=== PATIENT | male | born 1965 | race African-American/Black ===

== ENCOUNTER 2019-09-28 09:10 | Emergency (ER) | payer MEDICAID ==
[~2019-09-28] VITALS: Ht 198.1 cm; Wt 99.8 kg
[2019-09-28 09:14] VITALS: BP 150/81
[2019-09-28 09:58] VITALS: BP 150/81
== END 2019-09-28 09:59 ==
LOC: MED 09:10
DX: R03.0 Elevated blood-pressure reading, without diagnosis of hypertension (principal); M54.2 Cervicalgia; Z02.89 Encounter for other administrative examinations
CPT/HCPCS: 99283

== ENCOUNTER 2021-02-21 05:33 | Inpatient (IN) | payer MEDICAID, SELFPAY ==
[2021-02-21] VITALS (19 sets, daily range): BP systolic 134–181; BP diastolic 79–112
[~2021-02-21] VITALS: Ht 195.6 cm; Wt 91.2 kg
--- NOTE | 2021-02-21 05:42 | NUR ---
biba to bed 06
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
[2021-02-21] MEDS ORDERED: AMMONIA AROMATIC 1 INHL INH ONE (06:08)
--- NOTE | 2021-02-21 07:16 | NUR ---
Pt report given to ZELDA Juarez. Transfer of care at this time.
--- NOTE | 2021-02-21 07:30 | NUR ---
PT DESATURATING TO 85%. PLACED ON NON REBREATHER 15L.
[2021-02-21] MEDS ORDERED: NALOXONE 0.4 MG/ML VIAL ONE ×3 (08:19→09:50)
--- NOTE | 2021-02-21 08:20 | NUR ---
PUPILS DILATED. WITHDRAWS TO PAIN. ERMD AT BEDSIDE. 4MG OF NARCAN GIVEN.
[2021-02-21] MEDS ORDERED: NALOXONE 0.4 MG/ML VIAL IVP ONE ×2 (08:30→09:30)
--- NOTE | 2021-02-21 08:56 | NUR ---
PT ON NASAL CANNULA 2LPM. O2 SATURATION 100%. WILL CONTINUE TO MONITOR.
--- NOTE | 2021-02-21 09:30 | NUR ---
PT SATURATING 55%. PT ON NON REBREATHER 15L. ERMD CALLED TO BEDSIDE.
[2021-02-21] MEDS ORDERED: INTUBATION KIT MC ONE (09:53)
--- NOTE | 2021-02-21 09:55 | NUR ---
Uzair PALENCIA RCP CALLED TO BEDSIDE PATIENT PRESENTING WITH DECLINING SATURATION PER JENY/FLIGHT TEACHER 78%-88% OM SUPPLEMENTAL OXYGEN AT 2 LPM VIA NC
[2021-02-21] MEDS ORDERED: ROCURONIUM 50 MG/5 ML VIAL IV ONE (10:00)
[2021-02-21] MEDS ORDERED: ETOMIDATE 20 MG/10 ML VIAL IVP ONE (10:00)
[2021-02-21 10:04] LABS: BASOPHILS % (AUTO) 0.4 % (0.0-2.0); EOSINOPHILS # (AUTO) 0.1 K/uL (0-0.4); EOSINOPHILS % (AUTO) 1.3 % (0.0-4.0); HEMATOCRIT 41.5 % (36-52); HEMOGLOBIN 13.9 g/dL (12.0-18.0); LYMPHOCYTES # (AUTO) 1.7 K/uL (2.0-11.5); LYMPHOCYTES % (AUTO) 28.2 % (20.5-51.1); MEAN CORPUSCULAR HEMOGLOBIN 31 pg (27-31); MEAN CORPUSCULAR HGB CONC 34 g/dL (33-37); MEAN CORPUSCULAR VOLUME 91.2 fL (80-94); MONOCYTES # (AUTO) 0.6 K/uL (0.8-1.0); MONOCYTES % (AUTO) 10.7 % (1.7-9.3); NEUTROPHILS # (AUTO) 3.6 K/uL (1.8-7.7); NEUTROPHILS % (AUTO) 59.4 % (42.2-75.2); PLATELET COUNT (AUTO) 238 K/uL (140-450); RED BLOOD CELL COUNT(AUTO) 4.54 MIL/uL (4.20-6.10); RED CELL DISTRIBUTION WIDTH 13.9 % (11.6-13.7)
--- NOTE | 2021-02-21 10:05 | NUR ---
PATIEN SUCCESSFULLY INTUBATED BY DR. CANO/MAYTE ENDOTRACHEAL TUBE #7.5 SECURED AT 23cm TEETH/GUM LINE ETCO2 DETECTOR YELLOW GOOD AERATION THROUGHOUT BILATERAL LUNG MARTIN CONFIRNED BT ERMD
[2021-02-21] MEDS ORDERED: PROPOFOL 1000 MG/100 ML PREMIX 100 ML IV ONE (10:07)
[2021-02-21] MEDS ORDERED: PROPOFOL 200 MG/20 ML VIAL IV ONE ×2 (10:07→10:15)
--- NOTE | 2021-02-21 10:08 | NUR ---
MOIZ CANO VENTILATO SETTINGS: AC R18 [id number] PEEP 5cmH2O 100% OXYGEN SATURATION GREATER THAN 92%; ABG AFTER 1 HOUR ON VENTILAOTR PER MAYTE OKAY FOR PLANNING DIRECTOR TO ENTER VENTILAOTR AND ABG ORDERS
[2021-02-21] MEDS ORDERED: fentaNYL citrate 1 MG in NACL 0.9% 80 ML IV PRN (10:15)
[2021-02-21 10:32] LABS: ANION GAP 10.2 (8-16); CARBON DIOXIDE 28.3 mmol/L (21-32); CHLORIDE 106 mmol/L (98-107); CREATININE 1.2 mg/dL (0.6-1.3); GFR ARICAN-AMERICAN 81 mL/min (>90); GLUCOSE 95 mg/dL (74-106); POTASSIUM 3.5 mmol/L (3.5-5.1); SODIUM SERUM 141 mmol/L (136-145); UREA NITROGEN, BLOOD 17 mg/dL (7-18)
[2021-02-21] MEDS ORDERED: SODIUM PHOS / POTASSIUM PHOS 1 PKT PDR PO PRN (10:35)
[2021-02-21] MEDS ORDERED: DOCUSATE SODIUM 100 MG GELCAP PO PRN (10:35)
[2021-02-21] MEDS ORDERED: POTASSIUM CHLORIDE 40 MEQ, LIDOCAINE MPF 1% 25 MG in NACL 0.9% 250 ML IV PRN (10:35)
[2021-02-21] MEDS ORDERED: HYDROcodone/APAP 5/325 MG 1 TAB TAB PO PRN (10:35)
[2021-02-21] MEDS ORDERED: ONDANSETRON 4 MG/2 ML VIAL IM/IVP PRN (10:35)
[2021-02-21] MEDS ORDERED: ACETAMINOPHEN 325 MG TAB PO PRN (10:35)
[2021-02-21] MEDS ORDERED: MAG SULF 2000 MG/WATER PREMIX 50 ML IV PRN (10:35)
[2021-02-21 10:38] LABS: ALBUMIN 3.5 g/dL (3.4-5.0); ASPARTATE AMINOTRANSFERASE 61 U/L (15-37); TOTAL BILIRUBIN 0.5 mg/dL (0.0-1.0)
[2021-02-21 11:10] LABS: APPEARANCE,URINE CLEAR (CLEAR); BILIRUBIN,URINE NEGATIVE (NEGATIVE); BLOOD, URINE 1+ (NEGATIVE); COLOR,URINE YELLOW (YELLOW); LEUKOCYTE ESTERASE ,URINE TRACE (NEGATIVE); NITRITE, URINE NEGATIVE (NEGATIVE); PH,URINE 7.5 (5.0-9.0); UGLUCOSE NEGATIVE (NEGATIVE)
[2021-02-21 11:16] LABS: RBC,URINE 0-5 /HPF (0-5); WBC,URINE 0-5 /HPF (0-5)
[2021-02-21 11:23] LABS: BARBITURATE, URINE NEGATIVE ng/ml (NEG <=200); BENZODIAZEPINE, URINE NEGATIVE ng/mL (NEG <=200); CANNABINOID, URINE NEGATIVE ng/mL (NEG <=50); COCAINE, URINE NEGATIVE ng/mL (NEG <=300); OPIATE, URINE NEGATIVE ng/mL (NEG <=2000); PHENCYCLIDINE SCREEN,URINE POSITIVE ng/mL (NEG <=25)
[2021-02-21] MEDS: NACL 0.9% 1,000 ML IV SCH (11:25)
[2021-02-21] MEDS: PANTOPRAZOLE 40 MG INJ VIAL IVP SCH (11:25)
--- NOTE | 2021-02-21 11:25 | NUR ---
TRAHEAL SUCTION FR MODERATE HAZY WITH BLOOD TINGE SECRETIONS AIRWAY PATENT
--- NOTE | 2021-02-21 11:52 | NUR ---
TRANSFERRED TO ICU-6 REMOVED FROM VENTILATOR PLACED ON SUPPLEMENTAL OXYGEN VIA E-TANK AT 15 LPM TO AMBU BAG/HME/SUCTION CATHETER/ENDOTRACHEAL TUBE AMBU BAG DEPRESSION EVERY SIX SECONDS BY Uzair PALENCIA, PHOTOGRAPHIC PRINTER SATURATION 100% HR 78 TOLERATED TRANSFER WELL WITHOUT ADVERSE REACTIONS NOTED
--- NOTE | 2021-02-21 11:56 | NUR ---
Patient will be admitted to care of DR CHAVARRIA. Admited to ICU. Will go to room ICU-6. Belongings list completed. Report to BRANDON NDIAYE.
--- NOTE | 2021-02-21 12:15 | NUR ---
PT ARRIVED FROM ER IN [facility], REPORT RECEIVED FROM PETRONA NDIAYE, PT SEDATED ETT TO VENT, 7.5FR, 24CM AT [facility], ACVC FIO2 70%, TV 500, RR 18, PEEP 5, O2SAT 100%, BILAT EQUAL CHEST RISE AND FALL, BS CLEAR, PT PLACED ON YARN WEIGHER, NSR AT 75, BP 154/96, SKIN WARM DRY COLOR WNL, CAP REFILL <3SEC, NO EDEMA NOTED, ABD SOFT FLAT NON DISTENDED, LACERATION TO CHIN, ABRASION TO LEFT HAND, HEALING SORES TO LEFT INNER THIGH NOTED, WILL TAKE PHOTO, PT SEDATED TO RASS-1, REACHING TO ETT WITH HANDS, RESTRAINTS ON BILAT WRISTS, PROPOFOL INCREASED FROM 40 TO 50MCG/KG/MIN, DRY WT 95KG, IV TO LEFT AC 20G, SITE WNL, PT ORIENTED TO ROOM AND FLOOR, CALL LANDERS WITHIN REACH, SIDE RAILS UP X2, BED LOCKED IN LOW POSITION, PLAN OF CARE AND ORDERS REVIEWED.
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
[2021-02-21] MEDS: fentaNYL citrate 1 MG in NACL 0.9% 80 ML IV PRN ×2 (13:05→23:49)
--- NOTE | 2021-02-21 13:06 | NUR ---
FENTANYL DRIP STARTED PER ORDER
[2021-02-21] MEDS: PROPOFOL 1000 MG/100 ML PREMIX 100 ML IV PRN ×3 (13:08→20:15)
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
--- NOTE | 2021-02-21 13:35 | NUR ---
RT AT BEDSIDE FOR EKG
--- NOTE | 2021-02-21 14:22 | NUR ---
DR MOCTEZUMA PAGED AND CALLED BACK, REPORTED INCREASED BP 166/103, ORDER RECEIVED FOR ONE TIME DOSE OF HYDRALAZINE
[2021-02-21] MEDS ORDERED: hydrALAZINE 20 MG/ML VIAL IVP SCH (15:00)
--- NOTE | 2021-02-21 15:55 | NUR ---
DR MOCTEZUMA AT BEDSIDE
--- NOTE | 2021-02-21 16:50 | NUR ---
FIO2 TITRATED TO 35%. SPO2 100%. NURSE AWARE. WILL CONTINUE TO MONITOR.
[2021-02-21] MEDS ORDERED: hydrALAZINE 20 MG/ML VIAL IVP PRN ×2 (17:05→23:10)
[2021-02-21] MEDS ORDERED: LORazepam 2 MG/ML VIAL IM/IVP PRN (17:45)
--- NOTE | 2021-02-21 19:03 | NUR ---
DR METZ AT BEDSIDE
--- NOTE | 2021-02-21 19:30 | NUR ---
ASSUMED CARE OF PT.INITIAL ASSESSMENT COMPLETED.SR ON MONITOR.SEDATED.ORALLY INTUBATED TO VENT FIO2 35% TV500 RATE 18 PEEP5.WITH PERIPHERAL IV TO KRYSTIAN INTACT INFUSING FENTANYL 1MCG/KG/HR; LT AC G20 INTACT INFUSING PROPOFOL 40MCG/KG/MIN DRY WT 95KG. AND NS AT 40ML/HR.W/NGT TO LT NARES INTACT.PLACEMENT VERIFIED.NO RESIDUAL.ON JEVITY 1.2 AT 10ML/HR WATER FLUSH ORDERED.W/GUIDRY CATHETER TO BSD DRAINING SMALL AMT OF CLEAR YELLOW URINE.W/ABRASION TO LT HAND,LACERATION TO CHIN W/DERMA FERNANDO AND DRY WOUND TO LT INNER THIGH.FLACC 0.
--- NOTE | 2021-02-21 20:00 | NUR ---
URINE SPEC FOR U/A AND CULTURE SENT TO LAB
--- NOTE | 2021-02-21 21:58 | NUR ---
FIO2 TITRATED TO 30% AND TOLERATING WELL SPO2 100% 5 MIN POST TITRATION
[2021-02-21] MEDS ORDERED: METOPROLOL 5 MG/5 ML VIAL IV PRN ×2 (23:05→23:30)
--- NOTE | 2021-02-21 23:05 | NUR ---
PHONE CALL TO DR NÚÑEZ, OPTICAL LABORATORY MANAGER MD, MADE AWARE PTS BP STILL 174/95 AFTER APRESOLINE IVP GIVEN ORDERED.NEW ORDERS RECEIVED.CARRIED OUT
--- NOTE | 2021-02-21 23:41 | NUR ---
BP 195/95 HR 89; METOPROLOL ADMIN ORDERED.WILL CONTINUE TO CLOSELY MONITOR PT
[2021-02-22] VITALS (34 sets, daily range): BP systolic 130–173; BP diastolic 68–97
--- NOTE | 2021-02-22 00:15 | NUR ---
FIO2 TITRATED TO 24% AND TOLERATING WELL WILL CONTINUE TO MONITOR
[2021-02-22] MEDS: PROPOFOL 1000 MG/100 ML PREMIX 100 ML IV PRN ×6 (00:41→23:00)
--- NOTE | 2021-02-22 00:42 | NUR ---
ORAL CARE USING VAP KIT RENDERED.PT ON HEPARIN FOR DVT PROPHYLAXIS AND PROTONIX FOR GI PROPHYLAXIS.REPOSITIONED
--- NOTE | 2021-02-22 02:46 | NUR ---
PTS CONDITION REMAINS UNCHANGED.STILL ON PROPOFOL AND FENTANYL DRIPS.FLACC 0
--- NOTE | 2021-02-22 04:00 | NUR ---
ORAL CARE USING VAP KIT RENDERED.SECRETIONS SUCTIONED.REPOSITIONED.FLACC 0
--- NOTE | 2021-02-22 05:14 | NUR ---
MORNING CARE DONE.REPOSITIONED.NGT FEEDING INCREASED ORDERED
[2021-02-22 06:10] LABS: BASOPHILS % (AUTO) 0.3 % (0.0-2.0); EOSINOPHILS # (AUTO) 0.1 K/uL (0-0.4); EOSINOPHILS % (AUTO) 0.8 % (0.0-4.0); HEMATOCRIT 46.3 % (36-52); LYMPHOCYTES # (AUTO) 1.5 K/uL (2.0-11.5); LYMPHOCYTES % (AUTO) 21.8 % (20.5-51.1); MEAN CORPUSCULAR HEMOGLOBIN 31 pg (27-31); MEAN CORPUSCULAR HGB CONC 33 g/dL (33-37); MEAN CORPUSCULAR VOLUME 92.5 fL (80-94); MONOCYTES # (AUTO) 0.8 K/uL (0.8-1.0); MONOCYTES % (AUTO) 12.7 % (1.7-9.3); NEUTROPHILS # (AUTO) 4.3 K/uL (1.8-7.7); NEUTROPHILS % (AUTO) 64.4 % (42.2-75.2); PLATELET COUNT (AUTO) 260 K/uL (140-450); RED BLOOD CELL COUNT(AUTO) 5.01 MIL/uL (4.20-6.10); WHITE BLOOD COUNT (AUTO) 6.7 K/uL (4.8-10.8)
[2021-02-22 06:24] LABS: HEMOGLOBIN 15.5 g/dL (12.0-18.0)
[2021-02-22 06:26] LABS: ANION GAP 8.9 (8-16); CARBON DIOXIDE 29.1 mmol/L (21-32)
--- NOTE | 2021-02-22 07:30 | NUR ---
BEDSIDE REPORT RECEIVED FROM PRAVIN RN, PT SEDATED ETT TO VENT, 7.5FR, 24CM AT [facility], ACVC FIO2 24%, TV 500, RR 18, PEEP 5, O2SAT 100%, BILAT EQUAL CHEST RISE AND FALL, BS CLEAR, PT PLACED ON HAND TUFTER, NSR AT 75, BP 137/76, SKIN WARM DRY COLOR WNL, CAP REFILL <3SEC, NO EDEMA NOTED, ABD SOFT FLAT NON DISTENDED, NGT TO LEFT NARE, FEEDING JEVITY AT 30ML/HR, LACERATION TO CHIN, ABRASION TO LEFT HAND, HEALING SORES TO LEFT INNER THIGH NOTED, PT SEDATED TO RASS-3, PROPOFOL 40 MCG/KG/MIN, DRY WT 95KG, FENTANYL 1MCG/KG/HR INFUSING TO PIV LEFT AC 20G AND LEFT UPPER ARM 20G, SITES WNL, SAFETY MEASURES IN PLACE, CALL LANDERS WITHIN REACH, SIDE RAILS UP X2, BED LOCKED IN LOW POSITION, PLAN OF CARE AND ORDERS REVIEWED.
--- NOTE | 2021-02-22 07:31 | NUR ---
RECEIVED INTUBATED PT WITH A 7.5 ETT SECURED @24 TEETH/GUMS, ON VENT. SETTINGS AC 18, VT 500, PEEP 5 AND FIO2 24%. ETT MOVED TO PREVENT LIP BREAKDOWN. PT SUCTIONED OBTAINED SMALL AMOUNT OF THICK WHITE SECRETIONS, AIRWAY IS PATENT AND SECURE WITH ANCHOR FAST DEVICE. PT NOT IN ANY DISTRESS AT THIS TIME. VENT IS PLUGGED INTO A RED OUTLET WITH ALARMS ON AND FUNCTIONING. WILL CONTINUE TO MONITOR.
--- NOTE | 2021-02-22 08:15 | NUR ---
DR DALLAS AT BEDSIDE
--- NOTE | 2021-02-22 08:22 | NUR ---
PATIENT HAS BEEN SCREENED AND CATEGORIZED HIGH NUTRITION RISK. PATIENT WILL BE SEEN WITHIN 1-2 DAYS OF ADMISSION. 02/22/21 02/23/[address]
[2021-02-22] MEDS: PANTOPRAZOLE 40 MG INJ VIAL IVP SCH (09:00)
--- NOTE | 2021-02-22 09:02 | NUR ---
AM MEDS GIVEN PER ORDER, AM CARE DONE, ORAL CARE DONE, GUIDRY CARE DONE.
[2021-02-22] MEDS: NACL 0.9% 1,000 ML IV SCH (10:54)
[2021-02-22] MEDS: DOCUSATE 100 MG/10 ML UDC GT PRN (11:55)
[2021-02-22] MEDS: fentaNYL citrate - 50mL vial 2.5 MG in NACL 0.9% 200 ML IV PRN (12:01)
--- NOTE | 2021-02-22 12:05 | NUR ---
DR MOCTEZUMA AT BEDSIDE
--- NOTE | 2021-02-22 14:21 | NUR ---
PRN HYDRALAZINE GIVEN FOR INCREASED BP 172/100
--- NOTE | 2021-02-22 16:40 | NUR ---
TYLENOL GIVEN FOR 101.6, COOL SPONGE BATH GIVEN
--- NOTE | 2021-02-22 19:20 | NUR ---
RECEIVED PATIENT ON BED WITH HOB TO 30 DEGREE; SEDATED RASS-3 WITH PROPOFOL DRIPAT 35 MCG/KG/MIN AND WITH CONTINOUS FENTANYL INFUSION AT 1 MG/KG/HOUR VIA G20 IV CANNULA ON LEFT ARM.; PATENT AND INTACT. ORALLY INTUBATED AND VENTILATED AT 24% FIO2, SO2 99%. CARDIACSCOPE SHOWS ON SINUS RHYTHM HR 98/MIN NO ARRHYTHMMIAS SEEN. ABDOMEN SOFT, BOWEL SOUNDS ACTIVE; ON CONTINOUS TUBE FEEDING JEVITY 1.2AT 30 ML/HR VIA NGT TO LEFT NARE. WITH GUIDRY CATH IN PLACE TO GRAVITY DRAINAGE BAG DRAINING TO CLEAR YELLOW URINE OUTPUT; PATENT AND INTACT.
--- NOTE | 2021-02-22 20:30 | NUR ---
TURNED AND REPOSITIONED PATIENT; ORAL CARE DONE WITH VAP KIT.
[2021-02-23] VITALS (31 sets, daily range): BP systolic 116–166; BP diastolic 59–98
[2021-02-23] MEDS: PROPOFOL 1000 MG/100 ML PREMIX 100 ML IV PRN ×3 (03:15→19:51)
--- NOTE | 2021-02-23 03:30 | NUR ---
MORNING BED BATH DONE; KEPT CLEAN DRY AND COMFORTABLE.
[2021-02-23 06:17] LABS: ANION GAP 5.7 (8-16); CARBON DIOXIDE 30.1 mmol/L (21-32); POTASSIUM 3.8 mmol/L (3.5-5.1)
[2021-02-23 06:30] LABS: BASOPHILS % (AUTO) 0.1 % (0.0-2.0); EOSINOPHILS % (AUTO) 0.3 % (0.0-4.0); HEMATOCRIT 42.5 % (36-52); HEMOGLOBIN 14.2 g/dL (12.0-18.0); LYMPHOCYTES # (AUTO) 1.2 K/uL (2.0-11.5); LYMPHOCYTES % (AUTO) 15.1 % (20.5-51.1); MEAN CORPUSCULAR HEMOGLOBIN 31 pg (27-31); MEAN CORPUSCULAR HGB CONC 34 g/dL (33-37); MEAN CORPUSCULAR VOLUME 92.4 fL (80-94); MONOCYTES % (AUTO) 12.4 % (1.7-9.3); NEUTROPHILS # (AUTO) 5.7 K/uL (1.8-7.7); NEUTROPHILS % (AUTO) 72.1 % (42.2-75.2); PLATELET COUNT (AUTO) 254 K/uL (140-450); RED BLOOD CELL COUNT(AUTO) 4.59 MIL/uL (4.20-6.10); RED CELL DISTRIBUTION WIDTH 13.9 % (11.6-13.7); WHITE BLOOD COUNT (AUTO) 7.9 K/uL (4.8-10.8)
--- NOTE | 2021-02-23 07:30 | NUR ---
BEDSIDE REPORT RECEIVED FROM ANTONIO RN, PT SEDATED ETT TO VENT, 7.5FR, 24CM AT [facility], ACVC FIO2 24%, TV 500, RR 18, PEEP 5, O2SAT 100%, BILAT EQUAL CHEST RISE AND FALL, BS CLEAR, PT PLACED ON SUMO WRESTLER, NSR AT 93, BP 177/81, SKIN WARM DRY COLOR WNL, CAP REFILL <3SEC, NO EDEMA NOTED, ABD SOFT FLAT NON DISTENDED, NGT TO LEFT NARE, FEEDING JEVITY AT 50ML/HR, GUIDRY CATH IN PLACE, DRIAINING CLEAR LIGHT YELLOW URINE, LACERATION TO CHIN, ABRASION TO LEFT HAND, HEALING SORES TO LEFT INNER THIGH NOTED, PT SEDATED TO RASS-3, PROPOFOL 30 MCG/KG/MIN, DRY WT 95KG, FENTANYL 1MCG/KG/HR INFUSING TO PIV LEFT AC 20G AND LEFT UPPER ARM 20G, SITES WNL, SAFETY MEASURES IN PLACE, CALL LANDERS WITHIN REACH, SIDE RAILS UP X2, BED LOCKED IN LOW POSITION, PLAN OF CARE AND ORDERS REVIEWED.
[2021-02-23] MEDS: PANTOPRAZOLE 40 MG INJ VIAL IVP SCH (09:17)
[2021-02-23] MEDS: NACL 0.9% 1,000 ML IV SCH (10:35)
--- NOTE | 2021-02-23 14:20 | NUR ---
PT REACHING FOR ETT, OPENS EYES TO VOICE, DOES NOT FOLLOW COMMANDS, FENTANYL INCREASED, RESTRAINTS PLACED BACK ON
--- NOTE | 2021-02-23 14:35 | NUR ---
RECEIVED TORB BY DR. DUEÑAS FOR NEW TUBE FEEDING RECOMMENDATIONS FOR VITAL HIGH PROTEIN @ 80 ML/HR WITH FREE WATER FLUSH OF 80 ML Q6H.
--- NOTE | 2021-02-23 15:41 | NUR ---
02/23/21 RD INITIAL ASSESSMENT COMPLETED PLEASE REFER TO NUTRITION ASSESSMENT UNDER CARE ACTIVITY FOR ESTIMATED NUTRITIONAL NEEDS. 1. RECOMMENDED VITAL HIGH PROTEIN @ 80 ML/HR; START AT 40 ML/HR AND ADVANCE TO 80 ML/HR AFTER 4HR -THIS WILL PROVIDE 1920 KCAL AND 168 GM OF PROTEIN, MEETING 81% OF KCAL NEEDS AND 100% OF PROTEIN NEEDS 2. RECOMMEND FREE WATER FLUSH OF 80 ML Q6H 3. RECOMMEND SWALLOW EVALUATION IF/WHEN PATIENT IS EXTUBATED 4. RD TO FOLLOW-UP 2-3 DAYS, HIGH RISK JOSEFA ALLEN RD
[2021-02-23] MEDS: fentaNYL citrate - 50mL vial 2.5 MG in NACL 0.9% 200 ML IV PRN (15:45)
--- NOTE | 2021-02-23 17:38 | NUR ---
PT REMAINS ON DOCUMENTED VENT SETTINGS. PT NOT IN ANY DISTRESS AT THIS TIME. VENT ALARMS ON AND FUNCTIONING. ETT SECURE WITH A PATENT AIRWAY.
[2021-02-23 18:58] LABS: CHOL/HDL RATIO 2.9 (1-4.5); THYROID STIMULATING HORMONE 0.68 uIU/mL (0.34-3.74)
[2021-02-23 19:12] LABS: PROTHROMBIN TIME 10.6 secs (10.8-13.4)
--- NOTE | 2021-02-23 19:15 | NUR ---
RECEIVED PATIENT ON BED, WITH HOB TO 3O DEGREE; SEDATED CONTINOUSLY WITH PROPOFOL AND FENTANYL DRIP VIA PERIPHERAL LINES TO LEFT ARM. ORALLY; PUPILS 2MM BOTH BRISKLY REACTIVE TO LIGHT.ORALLY INTUBATED AND VENTILATED AT 24% FIO2 SO2 99%. CARDIACSCOPE SHOWS ON SINUS RHYTHM HR 96/MIN, NO ARRHYTHMIAS SEEN. ABDOMEN IS SOFT, ACTIVE BOWEL SOUNDS; ON CONTINOUS TUBE FEEDING JEVITY 1.2 VIA NGT; TOLERATED, WITH MINIMAL RESIDUALS. WITH GUIDRY CATH IN SITU TO GRAVITY DRAINAGE BAG, DRAINING TO CLEAR YELLOW URINE OUTPUT; PATENT AND INTACT.
--- NOTE | 2021-02-23 21:00 | NUR ---
TURNED AND REPOSITIONED PATIENT; ORAL CARE DONE WITH VAP KIT.
[2021-02-24] VITALS (21 sets, daily range): BP systolic 112–164; BP diastolic 60–99
[2021-02-24] MEDS: PROPOFOL 1000 MG/100 ML PREMIX 100 ML IV PRN ×4 (00:36→10:24)
--- NOTE | 2021-02-24 03:30 | NUR ---
MORNING BED BATH DONE; KEPT CLEAN, DRY AND COMFORTABLE.
[2021-02-24] MEDS: PANTOPRAZOLE 40 MG INJ VIAL IVP SCH ×2 (05:00→08:58)
[2021-02-24 06:07] LABS: BASOPHILS % (AUTO) 0.4 % (0.0-2.0); EOSINOPHILS # (AUTO) 0.1 K/uL (0-0.4); EOSINOPHILS % (AUTO) 1.2 % (0.0-4.0); HEMATOCRIT 39.8 % (36-52); HEMOGLOBIN 13.5 g/dL (12.0-18.0); LYMPHOCYTES # (AUTO) 1.1 K/uL (2.0-11.5); LYMPHOCYTES % (AUTO) 15.8 % (20.5-51.1); MEAN CORPUSCULAR HEMOGLOBIN 31 pg (27-31); MEAN CORPUSCULAR HGB CONC 34 g/dL (33-37); MEAN CORPUSCULAR VOLUME 90.8 fL (80-94); MONOCYTES # (AUTO) 0.8 K/uL (0.8-1.0); MONOCYTES % (AUTO) 11.2 % (1.7-9.3); NEUTROPHILS # (AUTO) 5.2 K/uL (1.8-7.7); NEUTROPHILS % (AUTO) 71.4 % (42.2-75.2); PLATELET COUNT (AUTO) 221 K/uL (140-450); RED BLOOD CELL COUNT(AUTO) 4.38 MIL/uL (4.20-6.10); WHITE BLOOD COUNT (AUTO) 7.2 K/uL (4.8-10.8)
[2021-02-24 06:27] LABS: ANION GAP 4.9 (8-16); CARBON DIOXIDE 31.9 mmol/L (21-32); POTASSIUM 3.8 mmol/L (3.5-5.1)
--- NOTE | 2021-02-24 07:20 | NUR ---
BEDSIDE REPORT RECEIVED FROM ANTONIO RN, PT SEDATED ETT TO VENT, 7.5FR, 24CM AT [facility], ACVC FIO2 24%, TV 500, RR 18, PEEP 5, O2SAT 100%, BILAT EQUAL CHEST RISE AND FALL, BS CLEAR, PT PLACED ON OPERATIONS SUPPORT SPECIALIST, NSR AT 92, BP 133/72, SKIN WARM DRY COLOR WNL, CAP REFILL <3SEC, NO EDEMA NOTED, ABD SOFT FLAT NON DISTENDED, NGT TO LEFT NARE, FEEDING JEVITY AT 50ML/HR, LACERATION TO CHIN, ABRASION TO LEFT HAND, HEALING SORES TO LEFT INNER THIGH NOTED, PT SEDATED TO RASS-3, PROPOFOL 35 MCG/KG/MIN, DRY WT 95KG, FENTANYL 1.5MCG/KG/HR INFUSING TO PIV LEFT AC 20G AND LEFT UPPER ARM 20G, SITES WNL, GUIDRY DRAINING YELLOW URINE, SAFETY MEASURES IN PLACE, CALL LANDERS WITHIN REACH, SIDE RAILS UP X2, BED LOCKED IN LOW POSITION, PLAN OF CARE, LABS AND ORDERS REVIEWED.
[2021-02-24] MEDS: fentaNYL citrate - 50mL vial 2.5 MG in NACL 0.9% 200 ML IV PRN (10:26)
[2021-02-24] MEDS: NACL 0.9% 1,000 ML IV SCH (10:35)
--- NOTE | 2021-02-24 11:10 | NUR ---
DR NÚÑEZ AT BEDSIDE Addendum: 02/24/21 at 1118 by Niecy Rodriguez RN DR NÚÑEZ SPOKE WITH AND MOTHER AT BEDSIDE DISCUSSED PLAN OF CARE Addendum: 02/24/21 at 1119 by Niecy Rodriguez RN DISREGARD ABOVE NOTE
--- NOTE | 2021-02-24 11:19 | NUR ---
DR NÚÑEZ AT BEDSIDE, TO START SBT TRIAL, RT AT BEDSIDE, PLACED ON C-PAP. SEDATION STOPPED
--- NOTE | 2021-02-24 11:21 | NUR ---
PT SELF EXTUBATED AND PLACED ON 3L NC. PT NOT IN ANY DISTRESS AND NOT SOB. NURSE BEDSIDE AND AWARE OF PT STATUS. WILL NOTIFY LAP LAYER.
--- NOTE | 2021-02-24 11:25 | NUR ---
SPOKE TO REGARDING PT SELF EXTUBATING . EXPLAINED PT RESPIRATORY STATUS AND PHYSICIAN STATES TO LEAVE PT EXTUBATED AND MONITOR RESPIRATORY STATUS.
--- NOTE | 2021-02-24 11:25 | NUR ---
DR. NÚÑEZ NOTIFIED THAT P. EXTUBATED HIMSELF AND RT WITH THE PATIENT AT THE TIME.
--- NOTE | 2021-02-24 12:03 | NUR ---
PT NOW RESTING QUIETLY IN NO ACUTE DISTRESS WITH NC AT 3L O2, PT FOLLOWS COMMANDS, VOICE HOARSE, MOVES ALL EXT GOOD STREANGTH, PT ORIENTED TO ROOM AND FLOOR, DATE AND PLACE, DENIES PAIN OR DISCOMFORT
--- NOTE | 2021-02-24 12:35 | NUR ---
PER PT'S REQUEST, CALLED HIS MOTHER CORINA AT [phone], NOTIFIED HER THAT PATIENT IS IN ICU AT [facility].
--- NOTE | 2021-02-24 14:03 | NUR ---
PT SITTING UP IN BED QUIETLY, NO C/O PAIN OR DISCOMFORT, RESP EVEN UNLABORED, VITALS STABLE.
--- NOTE | 2021-02-24 16:36 | NUR ---
PT REPEATEDLY COMPLAINS THAT HE IS HUNGRY, BEDSIDE SWALLOW SCREENING DONE, PT ABLE TO TAKE PO WITHOUT PROBLEM, PT ALSO REQUESTS TO BE SENT HOME, DR DUEÑAS PAGEEdwin AND CALLED BACK, MADE AWARE OF PT'S REQUESTS, PT DOWNGRADED TO TELE, TELEPHONE ORDER FOR REGULAR DIET RECEIVED.
--- NOTE | 2021-02-24 17:02 | NUR ---
PT ATE HALF OF SANDWICH WITHOUT PROBLEM, PT CALM RESTING IN NO ACUTE DISTRESS, PT C/O GUIDRY CATH, WANTS TO PULL OUT, PT EDUCATED NOT TO PULL OUT ON HIS OWN TO PREVENT INJURY.
--- NOTE | 2021-02-24 18:00 | NUR ---
REPORT GIVEN TO JESSICA NDIAYE, PT TRANSFERS SELF WITH MINIMAL ASSIST TO WHEELCHAIR, TAKEN TO 110B IN WHEELCHAIR
--- NOTE | 2021-02-24 18:02 | NUR ---
PT ARRIVED ON UNIT FROM ICU . PT AMBULATED TO BED. TOLERATED WELL. NO S/SX OF DISTRESS AT THIS TIME. PT ASSISTED WITH CALLING FAMILY
--- NOTE | 2021-02-24 19:08 | NUR ---
PT ENDORSED TO BENCH LATHE OPERATOR RN FOR CONTINUITY OF CARE. PT EATING DINNER AMBULATED TO RESTROOM W ASSISTANCE TOLERATED WELL
--- NOTE | 2021-02-24 20:20 | NUR ---
CALL FROM SISTER, LEE WISEMAN, . SHE REQUEST TO BE CONTACTED IN CASE OF HER MOTHER NOT ANSWERING WITH ANY CRITICAL UPDATE. TARAN WYATT RN
--- NOTE | 2021-02-24 20:31 | NUR ---
PATIENT REFUSAL OF HEPARIN. EDUCATION ON BLOOD CLOT RISKS AND PREVENTION DURING HOSPITALIZATION. PATIENT NEEDS FURTHER EDUCATION. EMPTIED URINAL REQUESTED. TARAN WYATT RN
[2021-02-25 03:48] VITALS: BP 167/97
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
[2021-02-25 07:08] LABS: T4 (THYROXINE) 6.2 ug/dL (4.5-12.0)
[2021-02-25 07:10] LABS: BASOPHILS % (AUTO) 0.5 % (0.0-2.0); EOSINOPHILS # (AUTO) 0.1 K/uL (0-0.4); HEMATOCRIT 40.6 % (36-52); HEMOGLOBIN 13.6 g/dL (12.0-18.0); LYMPHOCYTES # (AUTO) 1.6 K/uL (2.0-11.5); MEAN CORPUSCULAR HEMOGLOBIN 31 pg (27-31); MEAN CORPUSCULAR HGB CONC 34 g/dL (33-37); MEAN CORPUSCULAR VOLUME 91.7 fL (80-94); MONOCYTES # (AUTO) 0.6 K/uL (0.8-1.0); MONOCYTES % (AUTO) 8.2 % (1.7-9.3); NEUTROPHILS # (AUTO) 5.1 K/uL (1.8-7.7); NEUTROPHILS % (AUTO) 68.3 % (42.2-75.2); PLATELET COUNT (AUTO) 273 K/uL (140-450); RED BLOOD CELL COUNT(AUTO) 4.43 MIL/uL (4.20-6.10); RED CELL DISTRIBUTION WIDTH 13.5 % (11.6-13.7); WHITE BLOOD COUNT (AUTO) 7.5 K/uL (4.8-10.8)
[2021-02-25 07:12] LABS: ANION GAP 9.8 (8-16); CARBON DIOXIDE 29.7 mmol/L (21-32); CREATININE 0.8 mg/dL (0.6-1.3); POTASSIUM 4.5 mmol/L (3.5-5.1)
--- NOTE | 2021-02-25 07:15 | NUR ---
RECEIVED REPORT FROM BENCH MACHINE OPERATOR REPORT FOR CONTINUITY OF CARE. PT IS SLEEPING WITH VISIBLE CHEST RISE AND FALL. NO DISTRESS NOTED. PT ON RA. IV SITE INTACT. SKIN IS WARM AND DRY. SAFETY MEASURES IN PLACE. CALL LIGHT WITHIN REACH. WILL CONTINUE MONITOR.
--- NOTE | 2021-02-25 07:26 | NUR ---
HANDOFF WITH ZELDA HIGHTOWER. TARAN WYATT RN
[2021-02-25 08:00] VITALS: BP 158/92
[2021-02-25] MEDS: PANTOPRAZOLE 40 MG INJ VIAL IVP SCH (08:56)
--- NOTE | 2021-02-25 08:57 | NUR ---
ADMINISTERED PRESCRIBED MEDICATION. MEDICATION EDUCATION PERFORMED. PT VERBALIZED UNDERSTANDING. SAFETY MEASURES ARE IN PLACE. WILL CONTINUE TO MONITOR.
--- NOTE | 2021-02-25 09:15 | NUR ---
PT IS SLEEPING I
--- NOTE | 2021-02-25 09:15 | NUR ---
PT IS SLEEPING IN BED WITH VISIBLE CHEST RISE AND FALL. AROUSE TO TOUCH AND VOICE. PT IS ON RA WITH NO DISTRESS NOTED. PT IS STABLE. CALL LIGHT WITHIN REACH. WILL CONTINUE TO MONITOR.
[2021-02-25] MEDS: NACL 0.9% 1,000 ML IV SCH (10:41)
--- NOTE | 2021-02-25 11:10 | NUR ---
PT IS AWAKE AND WATCHING TELEVISION. PT IS ON RA WITH UNLABORED BREATHING. PT STATES NO PAIN. PT IS STABLE. CALL LIGHT WITHIN REACH. SAFETY MEASURES IN PLACE AND WILL CONTINUE TO MONITOR.
[2021-02-25 12:00] VITALS: BP 157/99
--- NOTE | 2021-02-25 12:05 | NUR ---
PT IS AWAKE. PT STATED HE HAS A HEADACHE. PAIN LEVEL 7/10. WILL ADMINISTERED PRN PAIN MEDICATION. PHYSICAL THERAPY AT BEDSIDE.
[2021-02-25] MEDS: MORPHINE SULFATE 2 MG/ML SYR IVP PRN ×2 (12:19→17:19)
--- NOTE | 2021-02-25 13:03 | NUR ---
PT IS BEEN WHEELED OUT ON GURNEY TO RADIOLOGY DEPARTMENT FOR CT SCAN BY NATURAL GAS INSPECTOR. PT IS STABLE. WILL WAIT FOR PT TO COME BACK.
--- NOTE | 2021-02-25 13:18 | NUR ---
PT IS BACK FROM RADIOLOGY. PT IS STABLE. CALL LIGHT WITHIN REACH. WILL CONTINUE TO MONITOR.
--- NOTE | 2021-02-25 15:41 | NUR ---
PT IS SLEEPING WITH VISIBLE CHEST RISE AND FALL. NO DISTRESS NOTED. PT IS STABLE. CALL LIGHT WITHIN REACH. WILL CONTINUE TO MONITOR.
--- NOTE | 2021-02-25 15:59 | NUR ---
02/25/21 RD FOLLOW UP COMPLETED PLEASE REFER TO NUTRITION ASSESSMENT UNDER CARE ACTIVITY FOR ESTIMATED NUTRITIONAL NEEDS. 1.RECOMMEND CONT REGULAR DIET TOLERATED 2.RD TO FOLLOW-UP 5-7 DAYS, LOW RISK JOSEFA ALLEN RD
[2021-02-25 16:00] VITALS: BP 152/85
[2021-02-25] MEDS: DOCUSATE 100 MG/10 ML UDC GT PRN (17:17)
--- NOTE | 2021-02-25 17:19 | NUR ---
PT STATED THAT HE HAD A PAIN LEVEL 8/10 IN HIS HEAD. HE ALSO STATED THAT HE HADN'T HAD A BOWEL MOVEMENT. PRN MEDICATION WAS ADMINISTERED. MEDICATION EDUCATION PROVIDED AND PT VERBALIZED UNDERSTANDING. PT IS STABLE. CALL LIGHT WITHIN REACH. WILL CONTINUE TO MONITOR.
--- NOTE | 2021-02-25 18:19 | NUR ---
PT IS AWAKE AND WATCHING TELEVISION. PT IS ON RA WITH UNLABORED BREATHING. PT STATES HIS PAIN LEVEL IS 4/10 BUT TOLERABLE. PT GETTING READY TO EAT DINNER. PT IS STABLE. CALL LIGHT WITHIN REACH. WILL CONTINUE TO MONITOR.
--- NOTE | 2021-02-25 19:20 | NUR ---
GAVE REPORT TO GOVERNMENT SERVICES PROFESSIONAL NURSE FOR CONTINUITY OF CARE. PT IS STABLE.
[2021-02-25 20:00] VITALS: BP 158/88
--- NOTE | 2021-02-25 20:20 | NUR ---
ALERT PATIENT ANSWERS QUESTIONS CLEARLY, ACCURATELY. PATIENT SAYS HE WILL VISIT HIS MOM WHEN HE DISCHARGES FROM THE HOSPITAL. PUPILS ARE EQUAL, ROUND AND REACTIVE TO LIGHT. RESPIRATIONS ARE UNLABORED WITH EVEN AND REGULAR RATE ON ROOM AIR. PATIENT TOLERATED DINNER WELL SAYS HE HAS FOOD DISLIKES PRESENT ON HIS TRAY. TARAN WYATT RN
--- NOTE | 2021-02-26 00:26 | NUR ---
ROUNDS TO PATIENT. LUNG ASSESSMENT OF RESPIRATIONS VIA AUSCULTATION REVEALS CLEAR BREATH SOUNDS THROUGHOUT BILATERALLY. GUIDRY CATHETER CARE RENDERED, EMPTIED, RECLAMPED. TARAN WYATT RN
--- NOTE | 2021-02-26 02:54 | NUR ---
PATIENT SLEEPING IN RIGHT SIDE POSITION. EVEN UNLABORED RESPIRATIONS. BED TO LOW POSITION CALL LANDERS WITHIN REACH. SIDERAILS UP X2. TARAN WYATT RN
[2021-02-26 04:00] VITALS: BP 152/96
--- NOTE | 2021-02-26 04:20 | NUR ---
PATIENT HAD BM X1 PER KARLA REGISTERED NURSE, WHO ASSISTED PATIENT TO AND FROM RESTROOM. TARAN WYATT RN
[2021-02-26 07:31] LABS: BASOPHILS % (AUTO) 0.6 % (0.0-2.0); EOSINOPHILS # (AUTO) 0.1 K/uL (0-0.4); EOSINOPHILS % (AUTO) 1.8 % (0.0-4.0); HEMATOCRIT 41.4 % (36-52); LYMPHOCYTES # (AUTO) 1.1 K/uL (2.0-11.5); LYMPHOCYTES % (AUTO) 19.6 % (20.5-51.1); MEAN CORPUSCULAR HEMOGLOBIN 31 pg (27-31); MEAN CORPUSCULAR HGB CONC 34 g/dL (33-37); MEAN CORPUSCULAR VOLUME 90.4 fL (80-94); MONOCYTES # (AUTO) 0.6 K/uL (0.8-1.0); MONOCYTES % (AUTO) 9.6 % (1.7-9.3); NEUTROPHILS # (AUTO) 3.9 K/uL (1.8-7.7); NEUTROPHILS % (AUTO) 68.4 % (42.2-75.2); PLATELET COUNT (AUTO) 311 K/uL (140-450); RED BLOOD CELL COUNT(AUTO) 4.59 MIL/uL (4.20-6.10); RED CELL DISTRIBUTION WIDTH 13.5 % (11.6-13.7); WHITE BLOOD COUNT (AUTO) 5.8 K/uL (4.8-10.8)
--- NOTE | 2021-02-26 07:36 | NUR ---
HANDOFF WITH ZELDA RAMSEY. TARAN WYATT RN
--- NOTE | 2021-02-26 07:37 | NUR ---
RECEIVED REPORT FROM DAY SHIFT NURSE. PT RESTING IN BED. PT AAOX4, ABLE TO MAKE NEEDS KNOWN, WITH TOLERABLE HEADACHE VERBALIZED. RESPIRATIONS EVEN AND UNLABORED TO ROOM AIR. ABDOMEN IS SOFT AND NON-TENDER. SKIN IS WARM AND DRY. PT WITH OPEN WOUND ON CHIN, NO ACTIVE BLEEDING NOTED. IV ACCESS ON LEFT AC G20 PATENT AND INTACT, SALINE LOCKED. PT WITH GUIDRY CATHETER IN PLACE DRAINING WELL TO YELLOW URINE. PT WITH NO REQUESTS AT THIS TIME. POC DISCUSSED. PT VERBALIZED UNDERSTANDING. SAFETY MEASURES IN PLACE, CALL LIGHT WITHIN REACH. WILL CONTINUE TO MONITOR.
[2021-02-26 07:46] LABS: ANION GAP 11.1 (8-16); CARBON DIOXIDE 28.2 mmol/L (21-32); CREATININE 1.1 mg/dL (0.6-1.3); POTASSIUM 4.3 mmol/L (3.5-5.1)
[2021-02-26] MEDS: PANTOPRAZOLE 40 MG INJ VIAL IVP SCH (08:23)
--- NOTE | 2021-02-26 08:28 | NUR ---
VS STABLE. SCHEDULED MEDS GIVEN. PT VERBALIZED TOLERABLE HEADACHE AT THIS TIME. NO REQUESTS MADE. WILL CONTINUE TO MONITOR.
[2021-02-26 10:00] VITALS: BP 151/99
[2021-02-26] MEDS ORDERED: CEPH250C16 PO (10:22)
[2021-02-26] MEDS ORDERED: LISI-487 PO (10:22)
--- NOTE | 2021-02-26 10:33 | NUR ---
PT WATCHING TV. DENIES ANY PAIN OR DISCOMFORT AT THIS TIME. NO REQUESTS MADE. WILL CONTINUE TO MONITOR.
[2021-02-26] MEDS: NACL 0.9% 1,000 ML IV SCH (10:35)
--- NOTE | 2021-02-26 11:24 | NUR ---
PT COMPLAINING OF HEADACHE 12/25. PRN NORCO GIVEN ORDERED.
[2021-02-26 11:33] VITALS: BP 151/99
[2021-02-26 12:00] VITALS: BP 157/94
--- NOTE | 2021-02-26 12:30 | NUR ---
FC REMOVED PER MD ORDERS. PT ABLE TO VOID FREELY.
--- NOTE | 2021-02-26 12:51 | NUR ---
PT ABLE TO AMBULATE TO BATHROOM AND BACK TO BED SAFELY BY HIMSELF
--- NOTE | 2021-02-26 13:47 | NUR ---
DC PLANNING: FAXED [facility] FOR PT ORDER [facility] ALISHA CORDOVA [facility] PER PT NOTES REFUSED PHYSICAL THERAPY, NURSE DOCUMENTATION PATIENT AMBULATE TO BATHROOM. CM TO FOLLOW Addendum: 02/26/21 at 1601 by Ally Amezquita RN DC PLANNING: SEEN PT WALKING AT THE HALLWAY NO WEAKNESS NOTED. STABLE FOR DISCHARGE.
--- NOTE | 2021-02-26 14:04 | NUR ---
MOTHER CALLED (COR[place]), STATES NO ONE AVAILABLE TO CONTROLS DESIGN ENGINEER PATIENT OF THIS MOMENT. WILL CALL AGAIN LATER.
--- NOTE | 2021-02-26 14:06 | NUR ---
ATTEMPTED TO SEE PATIENT MULTIPLE TIMES FOR PHYSICAL THERAPY TREATMENT HOWEVER PATIENT INITIALLY REPORTED HEADACHE AND TO ATTEMPT LATER. PATIENT CONTINUED TO STATE " I AM NOT READY YET". UPON FINAL ARRIVAL, PATIENT REPORTS " I ALREADY WENT TO THE RESTROOM ON MY OWN, YOU MISSED YOUR CHANCE". PATIENT STATES HE IS ABLE TO AMBULATE FINE WITHOUT DIFFICULTY. RN WATCHED PATIENT AMBULATE. CM AWARE.
--- NOTE | 2021-02-26 16:00 | NUR ---
VS STABLE. PT DENIES PAIN OR DISCOMFORT. NO REQUESTS MADE. WILL CONTINUE TO MONITOR.
--- NOTE | 2021-02-26 16:30 | NUR ---
IV ACCESS REMOVED, CANNULA INTACT. ID BAND REMOVED. DISCHARGE PAPERS AND INSTRUCTIONS AND TEACHING GIVEN.
--- NOTE | 2021-02-26 17:00 | NUR ---
CAB TRANSPORT LEFT WITHOUT PATIENT. PATIENT CURRENTLY IN LOBBY WAITING FOR OTHER CAB.
--- NOTE | 2021-02-26 18:00 | NUR ---
PT ESCORTED TO CAB. PT IN STABLE CONDITION.
== END 2021-02-26 17:00 | disposition home health service (06) | DRG 133 ==
LOC: MED 05:33 → MIC 11:05 → MTU 02-24 18:07
PROVIDERS: ADMIT General Practice; ATTEND General Practice
PROC: 5A1945Z Respiratory Ventilation, 24-96 Consecutive Hours (ICD-10-PCS; principal; 2021-02-21)
PROC: 0BH17EZ Insertion of Endotracheal Airway into Trachea, Via Natural or Artificial Opening (ICD-10-PCS; 2021-02-21)
PROC: 0HQ1XZZ Repair Face Skin, External Approach (ICD-10-PCS; 2021-02-21)
PROC: 5A1935Z Respiratory Ventilation, Less than 24 Consecutive Hours (ICD-10-PCS; 2021-02-24)
DX: J96.01 Acute respiratory failure with hypoxia (principal); G92 Toxic encephalopathy; S09.90XA Unspecified injury of head, initial encounter; E87.1 Hypo-osmolality and hyponatremia; E86.0 Dehydration; J98.11 Atelectasis; S01.81XA Laceration without foreign body of other part of head, initial encounter; N39.0 Urinary tract infection, site not specified; Z20.822 Contact with and (suspected) exposure to COVID-19; F15.10 Other stimulant abuse, uncomplicated; Y08.02XA Assault by strike by baseball bat, initial encounter; Y93.89 Activity, other specified; Y92.89 Other specified places as the place of occurrence of the external cause; Y99.8 Other external cause status
CPT/HCPCS: 12001; 31500; 36415; 36600; 70450; 71045; 72125; 80048; 80053; 80305; 81001; 82150; 82803; 83036; 83690; 83880; 84436; 84443; 85025; 85610; 85730; 87081; 87086; 93005; 94003; 96374; 96376; 97163-GP; 99291; C9113; G0482; J0360; J1644; J2270; J2310; J2704; J3010; J3490; J7030